=== PATIENT | female | born 1980 | race Caucasian/White ===

== ENCOUNTER 2018-03-19 20:53 | Inpatient (IN) | payer OTHER ==
[2018-03-19] MEDS ORDERED: Oxytocin in LR* 20 UNITS/1,000 ML BAG IVPB ONE (22:11)
[2018-03-19] MEDS ORDERED: Buffered Lidocaine 0.9% SYRIN* 5 ML/SYR SYRINGE ONE (22:12)
--- NOTE | 2018-03-19 22:18 | HP ---
General Information - Reason for Visit Pt presents with PROM s/p suspected rupture of membranes 03/18/18 at 1000. Reports intermittent leaking since then but no large gush of fluid. Had a long job interview today and presented to L&D for evaluation afterwards - General Information Maternal Age: 37 Grav: 2 Para: 0 SAB: 1 IEA: 0 Estimated Due Date: 04/06/18 Determined By: LMP Gestational Age in Weeks/Days: 37-3/7 Maternal Blood Type and Rh: O Positive - Results this Serology/RPR Result: Non-Reactive Rubella Result: Immune HBsAg Result: Negative HIV Result: Negative GBS Culture Result: Negative Past Medical History Delivery History Comment: primip Pertinent Past Medical History: See Records Past Medical History Comment: Hypothyroid on replacement Trigeminal neuralgia TMJ Migraine Pertinent Past Surgical History: See Records Past Surgical History Comment: 2015 D&C 1998 cyst removal from neck Pertinent Family History: See Records Family History Comment: Father: asthma Mother: Uterine cancer, Hypothyroid PGM: . Cancer MGM: Hypothyroid MGF: HTN, CVA, skin cancer - Antepartal Records Antepartal Records: Reviewed, Uncomplicated Review of Systems Constitutional: Comfortable CV Complaint: No Respiratory: Shortness of Breath: No Gastrointestinal: No Nausea/Vomiting, Normal Bowel Movement Genitourinary: Leaking Fluid - since 03/18 at 1000, No Dysuria, No Bleeding Musculoskeletal: No Complaint, No Epigastric Pain Neurological: No Headache, No Visual Changes Movement: Normal Exam Allergies/Adverse Reactions: Allergies No Known Allergies Allergy (Verified 03/19/18 23:31) BP 125/77 HR 75 RR 20 T 98.4 SpO2 100% Lab Values - Entire Visit: Laboratory Tests 03/19/18 21:14 Vag Amniotic Fld Detect Positive - Measurements Height: 5 ft 9 in Weight: 251 lb Weight in lbs: 251.652786 Body Mass Index (BMI): 37.0 Pre- Weight: 232 lb Weight Gained This : 19 lbs and 0 ozs - Exam Breast: Breast Exam Deferred CVA: No CVA Tenderness Extremities: No Edema Heart: Normal Rhythm/Heart Sounds HEENT: No Significant Findings Lungs: Clear Bilaterally Rectal: Rectal Exam Deferred Reflexes: DTR 2+ Thyroid: No Thyromegaly - Abdominal Exam Abdomen Exam: Non-Tender, Fundal Height Consistent with Dates - Ultrasound/Biophysical Profile Ultrasound Status: Not Done Targeted Exam Findings See L&D Outpatient Visit Provider Note for Findings: N/A Estimated Weight: 8.5 lbs Presenting Part: Vertex - by limited bedside sono Membrane Status: Leaking Sterile Speculum Exam: Not done Bleeding/Discharge: None EFM Findings - External Monitor Findings Baseline Heart Rate: 130 External Monitor Findings: Accelerations Present, No Pattern of Variable or Late Decelerations, Variability Moderate, Baseline Stable External Monitor Findings Comment: No evidence of metabolic acidemia Contractions: Regular, Mild Contraction Frequency: q3-5 min Assessment/Plan - Assessment IUP at 37-3/7 weeks with PROM, GBS negative - Obstetrical Risk Factors Obstetrical Risk Factors: Obesity - BMI > 30 - Plan Plan: Induction Plan Comment: Admit. Recommend IOL in presence of PROM. Given frequency of UCs and desire to minimize VE recommend IV pitocin. PARQ. Pt and FOB agree - Date/Time of Admission Date of Admission: 03/19/18 Time of Admission: 21:50
[2018-03-19] MEDS ORDERED: Oxytocin in LR* 20 UNITS/1,000 ML BAG IVPB SCH (23:00)
[2018-03-19 23:54] LABS: ABS Basophils 0.1 10^3/ul (0-0.2); ABS Eosinophils 0.1 10^3/ul (0-0.6); ABS Lymphocytes 2.9 10^3/ul (1.0-4.8); ABS Monocytes 0.8 10^3/ul (0-0.8); ABS Neutrophils 9.4 10^3/ul (1.5-7.7); ABS Nucleated RBC 0 10^3/ul; Eosinophil % 0.8 % (0-6); Hematocrit 32 % (35-47); Hemoglobin 10.7 g/dl (12.0-16.0); Lymphocyte % 21.5 % (25-47); Mean Corpuscular HGB Conc 34 g/dl (31-36); Mean Corpuscular Hemoglobin 29 pg (27-31); Mean Corpuscular Volume 85 fL (80-97); Mean Platelet Volume 8.1 um3 (7.4-10.4); Nucleated Red Blood Cells % 0.1; Platelet Count 274 10^3/ul (150-450); Red Blood Count 3.74 10^6/ul (4.00-5.40); Red Cell Distribution Width 14 % (10.5-15); White Blood Count 13.4 10^3/ul (3.5-10.8)
[2018-03-20] MEDS ORDERED: Nalbuphine* 10 MG/ML 1 ML VIAL IV ONE (01:30)
[2018-03-20] MEDS ORDERED: Promethazine INJ(RESTRICTED)* 25 MG/ML 1 ML VIAL IV ONE (01:30)
[2018-03-20] MEDS ORDERED: Nalbuphine* 10 MG/ML 1 ML VIAL ONE (02:06)
[2018-03-20] MEDS ORDERED: Promethazine INJ(RESTRICTED)* 25 MG/ML 1 ML VIAL ONE (02:06)
--- NOTE | 2018-03-20 04:23 | PN ---
Progress Note - Progress Note Date of Service: 03/20/18 Note: S: Pt more uncomfortable despite IV Nubain/Phenergan administered at 0210. Requesting epidural. Also reports increased clear vaginal discharge with several larger gushes O: BP: 107/69 HR: 82 T: 98 FHT: 115bpm. Moderate variability. +Accels. Rare variable decels with UCs UCs q 3 min. IV pitocinat 4mu/min VE: 3-4cm/80%/vtx -2, clear fluid A: IUP at 37-4/7 with PROM in early active labor No evidence of metabolic acidemia P: PARQ epidural analgesia. Also discussed possible benefit to applying SCD's once pt in bed. Pt agrees. Anesthesia paged for consult. Con't IV pitocin.
[2018-03-20] MEDS ORDERED: OBEPIDURAL* 250 ML EPIDURAL ONE (04:24)
[2018-03-20] MEDS ORDERED: fentaNYL* 50 MCG/ML 2 ML VIAL (100 MCG VIAL) ONE (04:26)
[2018-03-20] MEDS ORDERED: Famotidine TAB* 20 MG PO PRN (05:25)
[2018-03-20] MEDS ORDERED: Sodium Citrate/Citric Acid* 15 ML UDC PO PRN (05:25)
[2018-03-20] MEDS ORDERED: Phenylephrine IV* 40 MCG/ML 10 ML SYRINGE IV PUSH PRN (05:25)
[2018-03-20] MEDS ORDERED: Lidocaine 2% VISCOUS* 15 ML UDC ONE (05:44)
[2018-03-20] MEDS ORDERED: Levothyroxine TAB* 25 MCG TAB PO SCH (06:00)
[2018-03-20] MEDS ORDERED: Levothyroxine TAB* 50 MCG TAB PO SCH (06:00)
[2018-03-20] MEDS ORDERED: OBEPIDURAL* 250 ML EPIDURAL SCH (06:00)
[2018-03-20] MEDS: Phenylephrine IV* 40 MCG/ML 10 ML SYRINGE IV PUSH PRN ×3 (06:12→06:29)
--- NOTE | 2018-03-20 07:22 | PN ---
Progress Note - Progress Note Date of Service: 03/20/18 Note: S: Pt comfortable and resting s/p epidural placement O: BP 115/62 (some low BPs while sleeping s/p CEI. Resolve with phenylephrine) HR: 87 T: 98.3 RR: 16 FHT 125 bpm. Moderate variability. Pattern of early and variable decels but baseline maintained. Pattern improved with position change and O2 by mask. UCs q 2-4 IV pit remains at 4mu/min VE: deferred in presence of prolonged rupture A: IUP at 37-4/7 in labor Category II FHT. Doubt metabolic acidemia P: Enc rest. Continue IV pitocin. Close monitoring of maternal/ status
[2018-03-20] MEDS ORDERED: Cetirizine* 10 MG TAB PO SCH (09:00)
[2018-03-20] MEDS ORDERED: Witch Hazel PAD* JAR TOPICAL PRN (13:35)
[2018-03-20] MEDS ORDERED: Glycerin ADULT SUPP PR PRN (13:35)
[2018-03-20] MEDS ORDERED: Acetaminophen TAB* 325 MG PO PRN (13:35)
[2018-03-20] MEDS ORDERED: Dibucaine 1% 28.35 GM TUBE PR PRN (13:35)
[2018-03-20] MEDS ORDERED: Oxytocin in LR* 20 UNITS/1,000 ML BAG IVPB SCH (14:00)
--- NOTE | 2018-03-20 14:36 | PROCNOTE ---
[facility] OB: Delivery Note - Delivery A Date of : 03/20/18 Time of : 12:47 [place] Sex: Male Weight at : 3.714 kg Score 1 Minute: 9 Score 5 Minutes: 9 Gestational Age in Weeks and Days at Delivery: 37 Weeks and 4 Days Delivery Method: Spontaneous Vaginal Labor: Spontaneous Did Patient attempt ?: N/A, No Previous Amniotic Fluid: Clear Anesthesia/Analgesia: IM/IV, CEI for Labor Delivered By: Vesta Dunlap Nursery Level of Nursery: Regular/Bedside - Perineum Perineal Injury: 2nd Degree Perineal Repair: By Delivering Practioner - Events Delivery Events of Note: Pitocin During Labor, Supplemental O2 to Mother, ROM > 24 Hours Delivery Events of Note Comment: pitocin also after delivery - Additional Delivery Notes Additional Delivery Notes: Pt admitted to labor and delivery on 03/19/18 with prelabor rupture of membranes. Labor was augmented with Pitocin. Pt initially received Nubain and Phenergan for pain relief, then as labor progressed, requested and received an epidural, which provided good relief. Pt progressed steadily. FHR tracing was at times Category II due to variable decelerations, but was primarily Category I. After reaching full dilation pt labored down until she felt pressure with ctx. Pt coached on pushing, pushed with good effort and consistent progress. As was nearing , FHR became tachycardic, into the 180s. Pt remained afebrile. FHR then came back down to baseline of 145. Pt pushed to , then delivered the head OA to MICA. Shoulders followed without difficulty. Infant somersaulted through a tight nuchal cord x1. to maternal abdomen with lusty cry, Apgars 9/9. Cord clamped after pulsation ceased, cut by ' s father. Placenta delivered spontaneously soon after, Jr side, intact. Pt sustained second degree perineal laceration, repaired with 3-0 Rapide suture in the usual fashion with good tissue approximation and hemostasis. , pt and stable. Anticipate normal course.
[2018-03-20] MEDS: Ibuprofen TAB* 600 MG PO PRN ×2 (15:26→21:37)
[2018-03-20] MEDS: Docusate CAP* 100 MG PO SCH (21:38)
[2018-03-21] MEDS: Ibuprofen TAB* 600 MG PO PRN ×4 (04:28→22:11)
[2018-03-21 07:14] LABS: ABS Basophils 0.1 10^3/ul (0-0.2); ABS Eosinophils 0.2 10^3/ul (0-0.6); ABS Lymphocytes 3.2 10^3/ul (1.0-4.8); ABS Monocytes 1.2 10^3/ul (0-0.8); ABS Neutrophils 9.8 10^3/ul (1.5-7.7); ABS Nucleated RBC 0 10^3/ul; Eosinophil % 1.6 % (0-6); Hematocrit 26 % (35-47); Lymphocyte % 21.9 % (25-47); Mean Corpuscular HGB Conc 34 g/dl (31-36); Mean Corpuscular Hemoglobin 29 pg (27-31); Mean Corpuscular Volume 84 fL (80-97); Mean Platelet Volume 7.4 um3 (7.4-10.4); Nucleated Red Blood Cells % 0.1; Platelet Count 225 10^3/ul (150-450); Red Blood Count 3.15 10^6/ul (4.00-5.40); Red Cell Distribution Width 14 % (10.5-15); White Blood Count 14.5 10^3/ul (3.5-10.8)
[2018-03-21] MEDS: Ferrous Gluconate TAB* 324 MG TAB PO SCH ×2 (09:13→19:52)
[2018-03-21] MEDS: Docusate CAP* 100 MG PO SCH ×3 (09:14→19:52)
[2018-03-21] MEDS ORDERED: Cetirizine* 10 MG TAB PO SCH (21:00)
[2018-03-22] MEDS: Ibuprofen TAB* 600 MG PO PRN ×2 (04:21→10:37)
[2018-03-22] MEDS ORDERED: Levothyroxine TAB* 50 MCG TAB PO SCH (06:00)
[2018-03-22 08:15] VITALS: BP 112/71
[2018-03-22] MEDS: Ferrous Gluconate TAB* 324 MG TAB PO SCH (08:59)
[2018-03-22] MEDS: Docusate CAP* 100 MG PO SCH (08:59)
== END 2018-03-22 11:35 | disposition home or self-care (01) | DRG 807 ==
LOC: MCHOBOUT 20:53 → MCHOB 21:49
PROVIDERS: ADMIT Midwife; ATTEND Midwife
PROC: 10E0XZZ Delivery of Products of Conception, External Approach (ICD-10-PCS; principal; 2018-03-20)
PROC: 0KQM0ZZ Repair Perineum Muscle, Open Approach (ICD-10-PCS; 2018-03-20)
PROC: 3E033VJ Introduction of Other Hormone into Peripheral Vein, Percutaneous Approach (ICD-10-PCS; 2018-03-20)
DX: O42.12 Full-term premature rupture of membranes, onset of labor more than 24 hours following rupture (principal); Z37.0 Single live birth; O70.1 Second degree perineal laceration during delivery; O69.81X0 Labor and delivery complicated by cord around neck, without compression, not applicable or unspecified; O90.81 Anemia of the puerperium; D64.9 Anemia, unspecified; Z3A.37 37 weeks gestation of pregnancy
CPT/HCPCS: 36415; 84112; 85025; 86850; 86900; 86901; A9270-GY; J2300; J2550; J3010

== ENCOUNTER 2022-04-29 09:36 | Inpatient (IN) ==
[2022-04-29 12:44] LABS: Hematocrit 35 % (35-47); Hemoglobin 11.3 g/dL (12.0-16.0); Mean Corpuscular HGB Conc 33 g/dL (31-36); Mean Corpuscular Hemoglobin 25 pg (27-31); Mean Corpuscular Volume 77 fL (80-97); Mean Platelet Volume 6.7 fL (7.4-10.4); Platelet Count 300 10^3/uL (150-450); Red Blood Count 4.46 10^6 /uL (3.70-4.87); Red Cell Distribution Width 15 % (10-15)
[2022-04-29] MEDS ORDERED: Lactated Ringers 1000 ml BAG 1,000 ML IV ONE ×3 (12:46→15:09)
[2022-04-29] MEDS ORDERED: Famotidine IV 10 MG/ML 2 ml VIAL (20 mg) IV SLOW PU ONE (12:57)
[2022-04-29 13:11] LABS: Urine Appearance Cloudy; Urine Bilirubin Negative (Negative); Urine Blood 3+ (Large) (Negative); Urine Color Yellow; Urine Glucose Negative (Negative); Urine Ketones Negative (Negative); Urine Nitrite Negative (Negative); Urine Protein 1+ (30 mg/dL) (Negative); Urine Urobilinogen 0.2 (Negative) (Negative); Urine pH 7.5 (5.0-9.0)
[2022-04-29 13:24] LABS: Urine Bacteria 1+ (Absent); Urine Red Blood Cell 3+(>10/hpf) (Absent); Urine Squamous Epithelial Cell Present (Absent); Urine White Blood Cell 3+(>20/hpf) (Absent)
[2022-04-29 13:31] LABS: ABS Basophils 0.1 10^3/ul (0-0.2); ABS Lymphocytes 0.9 10^3/ul (1.0-4.8); ABS Monocytes 1.2 10^3/ul (0-0.8); ABS Neutrophils 22.8 10^3/ul (1.5-7.7); Eosinophil % 0.2 %; Lymphocyte % 3.7 %
[2022-04-29 13:44] LABS: HCG Pregnancy < 0.60 mIU/mL
[2022-04-29] MEDS ORDERED: Piperacillin/Tazobac ADVAN 3.375 GM in NS 0.9% 100 ml BAG 100 ML IV ONE (13:51)
[2022-04-29 13:53] LABS: ALT 12 U/L (7-52); AST 15 U/L (13-39); Albumin 3.8 g/dL (3.2-5.2); Albumin/Globulin Ratio 1.3 (1-3); Alkaline Phosphatase 71 U/L (35-149); Anion Gap 7 mmol/L (2-11); Blood Urea Nitrogen 19 mg/dL (6-24); C Reactive Protein 50.06 mg/L (<8.01); CO2 Carbon Dioxide 26 mmol/L (22-32); Calcium 8.8 mg/dL (8.6-10.3); Chloride 103 mmol/L (101-111); Globulin 2.9 g/dL (2-4); Glucose 91 mg/dL (70-100); Potassium 3.7 mmol/L (3.5-5.0); Sodium 136 mmol/L (135-145); Total Protein 6.7 g/dL (6.4-8.9); eGFR CKD-EPI 62.1 (>60)
[2022-04-29] MEDS ORDERED: Iohexol 350 (CONTRAST) 500 ML MDV IV ONE (15:06)
[2022-04-29] MEDS ORDERED: Albuterol HFA INHALER 8 gm MDI INH PRN (18:44)
[2022-04-29] MEDS ORDERED: Zosyn per Pharmacy NOTE FOLLOW UP SCH (19:00)
[2022-04-29] MEDS: ZOSYN 3.375 GM Q8H per EXTENDED INFUSION IV SCH (20:31)
[2022-04-29] MEDS: Lactated Ringers 1000 ml BAG 1,000 ML IV SCH (23:21)
[2022-04-30] MEDS: ZOSYN 3.375 GM Q8H per EXTENDED INFUSION IV SCH ×3 (03:51→12:08)
[2022-04-30 06:22] LABS: ABS Basophils 0.1 10^3/ul (0-0.2); ABS Eosinophils 0.1 10^3/ul (0-0.6); ABS Lymphocytes 1.8 10^3/ul (1.0-4.8); ABS Monocytes 0.7 10^3/ul (0-0.8); ABS Neutrophils 9.9 10^3/ul (1.5-7.7); Eosinophil % 0.7 %; Hematocrit 31 % (35-47); Hemoglobin 9.8 g/dL (12.0-16.0); Lymphocyte % 14.3 %; Mean Corpuscular HGB Conc 32 g/dL (31-36); Mean Corpuscular Hemoglobin 25 pg (27-31); Mean Corpuscular Volume 78 fL (80-97); Mean Platelet Volume 6.5 fL (7.4-10.4); Platelet Count 273 10^3/uL (150-450); Red Blood Count 3.93 10^6 /uL (3.70-4.87); Red Cell Distribution Width 15 % (10-15); White Blood Count 12.5 10^3/uL (3.5-10.8)
[2022-04-30 06:50] LABS: Potassium 3.6 mmol/L (3.5-5.0); eGFR CKD-EPI 54.7 (>60)
[2022-04-30] MEDS: Lactated Ringers 1000 ml BAG 1,000 ML IV SCH (07:32)
[2022-04-30 15:06] VITALS: BP 105/73
[2022-05-02 14:38] LABS: Trichomonas vag NAA Female Negative (Negative)
[2022-05-02 14:43] LABS: Chlamydia trachomatis NAA Negative (Negative); Neisseria gonorrhoeae (GC) NAA Negative (Negative)
== END 2022-04-30 18:05 | disposition home or self-care (01) | DRG 466 ==
LOC: ED 09:36 → EDHOLD 17:11 → SUATTDRO 17:11 → EDHOLD 21:36 → MED 22:11
PROVIDERS: ADMIT Internal Medicine; ATTEND Hospitalist